=== PATIENT | male | born 1960 | race Caucasian/White ===

== ENCOUNTER 2019-07-18 17:52 | Emergency (ER) | payer BC ==
[~2019-07-18] VITALS: Ht 180.3 cm; Wt 106.8 kg
[2019-07-18] MEDS ORDERED: dexamethasone sod phosphate 10mg/ml inj IV STA (18:17)
[2019-07-18] MEDS ORDERED: ipratropium/albuterol 3ml nebule NEB ONE (18:20)
[2019-07-18] MEDS ORDERED: dexamethasone 4mg tablet PO ONE (18:20)
[2019-07-18 19:00] LABS: ALANINE AMINOTRANSFERASE 49 U/L (12-78); ALBUMIN 3.8 G/DL (3.4-5.0); ALBUMIN/GLOBULIN RATIO 0.8 (1.1-1.5); ALKALINE PHOSPHATASE 119 IU/L (46-116); ANION GAP 10 (8-16); ASPARTATE AMINO TRANSFERASE 36 U/L (10-37); BILIRUBIN,TOTAL 0.3 MG/DL (0.1-1.0); BLOOD UREA NITROGEN 29 MG/DL (7-18); CALCIUM 9.4 MG/DL (8.5-10.1); CHLORIDE 107 MMOL/L (99-107); CREATININE 1.38 MG/DL (0.60-1.10); GLUCOSE 124 MG/DL (70-104); POTASSIUM 4.3 MMOL/L (3.5-5.1); SODIUM 143 MMOL/L (135-145); TOTAL CARBON DIOXIDE 26.1 MMOL/L (24-32); TOTAL PROTEIN 8.6 G/DL (6.4-8.2); eGFR 52 ML/MIN
[2019-07-18 19:03] LABS: BASOPHILS # (AUTO) 0.2 X10'3 (0-0.2); BASOPHILS % (AUTO) 1.2 % (0-1); EOSINOPHILS # (AUTO) 0.3 X10'3 (0-0.9); EOSINOPHILS % (AUTO) 2.4 % (0-6); HEMOGLOBIN 15.8 g/dl (14.0-17.9); LYMPHOCYTES # (AUTO) 3.8 X10'3 (1.1-4.8); LYMPHOCYTES % (AUTO) 29.2 % (21-51); MEAN CORPUSCULAR HEMOGLOBIN 29.6 PG (27.0-31.0); MEAN CORPUSCULAR HGB CONC 32.8 g/dL (33.0-36.5); MEAN CORPUSCULAR VOLUME 90.1 FL (78-98); MEAN PLATELET VOLUME 8.5 FL (7.4-10.4); MONOCYTES # (AUTO) 1.2 X10'3 (0-0.9); MONOCYTES % (AUTO) 9.3 % (2-12); NEUTROPHILS # (AUTO) 7.6 X10'3 (1.8-7.7); NEUTROPHILS % (AUTO) 57.9 % (42-75); PLATELET COUNT 342 X10'3 (140-440); RED BLOOD COUNT 5.33 X10'6 (4.70-6.10); WHITE BLOOD COUNT 13.1 X10'3 (4.5-11.0)
[2019-07-18 19:36] LABS: D-DIMER 0.51 MG/L FEU (0-0.50); PARTIAL THROMBOPLASTIN TIME 28 SECONDS (22-32)
[2019-07-18] MEDS ORDERED: normal saline 1000ML IV soln IVB ONE (19:40)
[2019-07-18] MEDS ORDERED: iohexol 350MG/ML 100ml bottle IV ONE (19:48)
--- NOTE | 2019-07-18 19:54 | NUR ---
Patient's heart rate spontaneously decreased from 130s to 90s and reports immediate resolution of symptoms and wants to go home. Spoke to the patient about the risks of leaving including and he continues to decline. Dr. Anderson also spoke to the patient about staying for finishing his workup but he continues to decline.
[2019-07-18 20:02] VITALS: BP 149/91
== END 2019-07-18 20:10 | disposition left against medical advice (07) ==
LOC: ER 17:53
DX: R06.02 Shortness of breath (principal); R00.0 Tachycardia, unspecified; I10 Essential (primary) hypertension; I25.2 Old myocardial infarction; J45.909 Unspecified asthma, uncomplicated; R61 Generalized hyperhidrosis; R11.0 Nausea; Z53.29 Procedure and treatment not carried out because of patient's decision for other reasons; Z88.8 Allergy status to other drugs, medicaments and biological substances
CPT/HCPCS: 36415; 71045; 80053; 84484; 85025; 85379; 85610; 85730; 93005; 94640; 99285; Q9967